=== PATIENT | female | born 1990 | race African-American/Black ===

== ENCOUNTER 2021-06-10 15:54 | Emergency (ER) | payer OTHER, SELFPAY ==
[2021-06-10 16:22] VITALS: PULSE 86; RESP 16; TEMP 36.7; O2SAT 100
--- NOTE | 2021-06-10 16:29 | ED.NAVMDI ---
HPI - Nausea/Vomiting/Diarrhea General Chief complaint: Nausea/Vomiting/Diarrhea Stated complaint: Nausea Time Seen by Provider: 06/10/21 16:40 Source: patient and RN notes reviewed Mode of arrival: ambulatory Limitations: no limitations History of Present Illness HPI Narrative: 31-year-old female presents with concern for 2-week history of nasal congestion, rhinorrhea, postnasal drainage, sinus pressure, nausea, dizziness, occasional vomiting. Reports approximately 1-2 episodes of vomiting daily. Reports dizziness when she changes positions or turns her head. She denies diarrhea or abdominal pain. Denies [id number] medications for her symptoms. She denies cough or shortness of breath. Reports she has been vaccinated for Covid. Reports her last menstrual period was 23 days ago, denies chance of . MD elicited complaint: nausea and vomiting Related Data Allergies Allergy/AdvReac Type Severity Reaction Status Date / Time shrimp Allergy Rash Verified 06/10/21 16:21 Review of Systems Review of Systems: CONSTITUTIONAL: Reports malaise. Denies chills, sweats, or fever. EYES: Denies visual changes, redness, or discharge. ENT: Reports rhinorrhea, congestion, sinus pain, otalgia. Denies sore throat. CARDIOVASCULAR: Denies chest pain, palpitations, or edema. RESPIRATORY: Denies cough or dyspnea. GASTROINTESTINAL: Denies abdominal pain, diarrhea, bloody, or mucous stools. Reports nausea, vomiting GENITOURINARY: Denies dysuria or hematuria. SKIN: Denies rash or itching. MUSCULOSKELETAL: Denies back pain, joint pain, or myalgia. NEUROLOGIC: Denies numbness, weakness, or headache. PSYCHIATRIC: Denies anxiety or depression. All systems reviewed & are unremarkable except as noted in HPI and below PMFSH Comments At time of signature, agree with nursing past medical, surgical, social and family history. There is no relevant family history pertinent to the presenting complaint Exam Narrative: GENERAL: Well-appearing, well-nourished, and in no acute distress. HEAD: Normocephalic EYES: PERRLA, conjunctivae clear ENT: Nares clear, turbinates edematous and erythematous, sinus tenderness. Mucous membranes moist. TM pearly saenz with dull light reflex bilaterally; no tragal tenderness. Oropharynx not erythematous without lesions. Tonsils not enlarged and without exudate, no drooling, no hoarseness, no trismus, uvula midline. NECK: Supple. No lymphadenopathy CHEST: Clear to auscultation, breath sounds equal. No wheezing, rhonchi, rales, or stridor. No respiratory distress, speaks in full sentences. HEART: Regular rate and rhythm. No murmur heard. ABDOMEN: Soft, flat, nondistended. No guarding, rebound tenderness, or rigidity. No pulsatilla masses. Bowel sounds present in all four quadrants. No organomegaly. Negative Ontiveros?s sign. No periumbilical tenderness. No Supra public tenderness or distension. SKIN: Warm, dry, no rash. NEURO: Alert and oriented x3. No focal deficits. Cranial nerves II through XII grossly intact. Priscila-Hallpike test negative PSYCH: Normal mood and affect Course Course Emergency Course: Patient is aware of diagnosis, understands and agrees to treatment plan. Anticipatory guidance given. Patient agrees to follow-up as directed and is aware of reasons to seek care at the emergency department. Portions of this record may have been created with voice recognition software Vital Signs Vital signs: Vital Signs Temperature 98.1 F 06/10/21 16:22 Pulse Rate 86 06/10/21 16:22 Respiratory Rate 16 06/10/21 16:22 Pulse Oximetry 100 06/10/21 16:22 Temperature 98.1 F 06/10/21 16:22 Pulse Rate 86 06/10/21 16:22 Respiratory Rate 16 06/10/21 16:22 Pulse Oximetry 100 06/10/21 16:22 Reviewed. MDM - Nausea/Vomiting/Diarrhea MDM Narrative Medical decision making narrative: No evidence of pancreatitis, AAA, cholecystitis, choledocholithiasis, cholangitis, mesenteric ischemia, small bowel obstru
[2021-06-10 16:31] VITALS: BP 105/59; PULSE 72
[2021-06-10 16:32] VITALS: BP 101/57; PULSE 77
[2021-06-10 16:34] VITALS: BP 108/66; PULSE 89
== END 2021-06-10 17:15 | disposition home or self-care (01) ==
PROVIDERS: Emergency Provider Nurse Practitioner
DX: J01.90 Acute sinusitis, unspecified (principal); R42 Dizziness and giddiness; Z20.822 Contact with and (suspected) exposure to COVID-19
CPT/HCPCS: 87426; 99213; C9803; G0463

== ENCOUNTER 2021-06-11 13:31 | Emergency (ER) | payer OTHER, SELFPAY ==
[2021-06-11 13:36] VITALS: BP 109/60; PULSE 77; RESP 17; TEMP 36.6; O2SAT 100
[2021-06-11 13:49] LABS: Basophils Percent Auto 0.3 % (0.2-1.2); Eosinophils Percent Auto 0.2 % (0-4.4); Hematocrit 37.8 % (37.0-47.0); Hemoglobin 12.6 g/dL (12.0-15.0); Immature Granulocyte Absolute 0.04 K/mm3 (0.00-0.031); Immature Granulocyte Percent A 0.4 % (0-0.5); Lymphocytes Absolute Auto 2.12 K/mm3 (0.9-3.2); Lymphocytes Percent Auto 21.8 % (18.3-44.2); Mean Corpuscular HGB Conc 33.3 g/dl (32-36); Mean Corpuscular Hemoglobin 29.2 pg (26-34); Mean Corpuscular Volume 87.5 fl (80-100); Mean Platelet Volume 11.6 fl (7.4-10.4); Monocytes Absolute Auto 0.4 K/mm3 (0.1-0.6); Monocytes Percent Auto 3.6 % (2.6-8.5); Neutrophils Absolute Auto 7.2 K/mm3 (1.3-6.7); Neutrophils Percent Auto 73.7 % (45.5-73.1); Platelet Count Result 183 k/mm3 (150-375); Red Blood Count 4.32 M/mm3 (4.2-5.4); Red Cell Distribution Width 11.9 % (11.5-14.5); White Blood Count 9.7 K/mm3 (4.5-10.0)
[2021-06-11 13:59] LABS: Alanine Aminotransferase 22 U/L (4-35); Albumin Level 4.2 g/dL (3.5-5.1); Alkaline Phosphatase 70 U/L (38-126); Anion Gap 10 mmol/L (8-16); Aspartate Amino Transferase 23 U/L (14-36); Bilirubin,Total 0.3 mg/dL (0.2-1.3); Blood Urea Nitrogen 6 mg/dL (7-17); Calcium 8.9 mg/dL (8.4-10.2); Carbon Dioxide 25 mmol/L (22-30); Chloride 105 mmol/L (98-107); Estimated CRCL calculation 115 ml/min; Estimated Glomerular Filt Rate > 60; Glucose 100 mg/dL (65-110); Lipase 107 U/L (23-300); Potassium 3.9 mmol/L (3.4-5.0); Sodium 140 mmol/L (137-145)
[2021-06-11 14:33] LABS: Add Urine Microscopic? YES; Appearance Urine Clear (Clear); Bilirubin Urine Negative (Negative); Blood Urine Negative (Negative); Color Urine Yellow (Yellow); Glucose Urine UA Negative (Negative); Ketones Urine Trace mg/dL (Negative); Leukocyte Esterase Ur Negative LEU/UL (Negative); Mucus Urine Rare /lpf; Nitrate Urine Negative (Negative); Protein Urine Negative (Negative); Specific Grav Ur 1.013 (1.001-1.035); Squamous Epithelial Cell Urine Rare /hpf (Few); Urobilinogen Urine Negative mg/dL (<2.0); WBC Urine 0-3 /hpf
[2021-06-11 16:28] VITALS: BP 104/70; PULSE 88; RESP 18; TEMP 36.7; O2SAT 100
--- NOTE | 2021-06-11 18:23 | ED.NAVMDI ---
HPI - Nausea/Vomiting/Diarrhea General Chief complaint: Nausea/Vomiting/Diarrhea Stated complaint: N/V Time Seen by Provider: 06/11/21 17:57 Source: patient Mode of arrival: ambulatory Limitations: no limitations History of Present Illness MD elicited complaint: nausea and vomiting Pertinent past history: anorexia Onset (ago): week(s) (3) Description of vomiting: food contents Description of diarrhea: other (none) Associated nausea: Yes Associated abdominal pain: No Exacerbating factors: eating and medication (started doxycycline) Relieving factors: none Associated symptoms: other (recently diagnosed with sinusitis, given zofran, doxycycline and medrol dose pack; not helping vomiting per patient) Related Data Allergies Allergy/AdvReac Type Severity Reaction Status Date / Time shrimp Allergy Rash Verified 06/11/21 18:01 Review of Systems Review of Systems: CONSTITUTIONAL: no fever, no weight loss, no confusion EYES: no vision changes, no eye pain ENT: no rhinorrhea, no sore throat, states sinus pain CARDIOVASCULAR: no chest pain, no leg edema, no palpitations RESPIRATORY: no cough, no shortness of breath, no hemoptysis GASTROINTESTINAL: no abdominal pain, positive nausea, positive vomiting, no diarrhea GENITOURINARY: no flank pain, no dysuria, no hematuria SKIN: no rash, no jaundice MUSCULOSKELETAL: no back pain, no trauma. NEUROLOGIC: positive for frontal headache, no dizziness, no focal weakness PSYCHIATRIC: No hallucinations, no suicidal ideation Exam Narrative: General: alert, afebrile, answering all questions appropriately Head: normocephalic, atraumatic Eyes: EOMI bilaterally, anicteric, no injection ENT: moist mucous membranes, oropharynx patent, no rhinorrhea Neck: supple, trachea midline, no JVD Abd: soft, non-distended, non-tender, no rebound, no gaurding, negative Ontiveros's EXT: no deformity noted, moving all extremities equally Skin: warm, dry, no pallor Neuro: alert, oriented x 3; CN 2-12 grossly intact, no dysarthria Psych: affect appropriate, though content normal Course Course Emergency Course: Patient is afebrile, abdomen soft, nondistended no vomiting in the ED, tolerating p.o. Plan is to change antibiotic to Keflex since it will be easier on her stomach. Patient told not to take doxycycline also sent home with Lg for breakthrough vomiting. Patient to follow-up with primary doctor she was given the name yesterday and to return for any concern including fever, intractable vomiting, inability to tolerate fluids or medications, worsening pain or any concern. CBC is normal, no anemia, no sign of infection. Vital Signs Vital signs: Vital Signs Temperature 36.6 C 06/11/21 13:36 Pulse Rate 77 06/11/21 13:36 Respiratory Rate 17 06/11/21 13:36 Blood Pressure 109/60 06/11/21 13:36 Pulse Oximetry 100 06/11/21 13:36 Temperature 36.7 C 06/11/21 16:28 Pulse Rate 88 06/11/21 16:28 Respiratory Rate 18 06/11/21 16:28 Blood Pressure 104/70 06/11/21 16:28 Pulse Oximetry 100 06/11/21 16:28 MDM - Nausea/Vomiting/Diarrhea MDM Narrative Medical decision making narrative: Patient recently seen for sinusitis and given doxycycline complaining increased nausea and vomiting since that time. She still has a headache. Labs were drawn out found patient pulse of 77, blood pressure 109/60, hemoglobin is 12.6 no evidence of anemia. No elevated white count at 9.7 patient is hydrated with a BUN of 6 creatinine of 1.5 urine without ketones and a specific gravity of 1.01. Patient is tolerating p.o. Last time she vomited was 4 hours prior to arrival. But she has candy wrappers at her side and was able to tolerate Twix bars. Lab Data Result diagrams: 06/11/21 13:42 06/11/21 13:42 Labs: Lab Results 06/11/21 06/11/21 06/11/21 Range/Units 13:42 13:42 13:55 WBC 9.7 (4.5-10.0) K/mm3 RBC 4.32 (4.2-5.4) M/mm3 Hgb 12.6 (12.0-15.0) g/dL Hct 37.8
[2021-06-11 18:50] VITALS: BP 112/60; PULSE 85; RESP 16; O2SAT 100
== END 2021-06-11 18:51 | disposition home or self-care (01) ==
PROVIDERS: Emergency Medicine; Emergency Provider Emergency Medicine
DX: R11.10 Vomiting, unspecified (principal); Z91.013 Allergy to seafood
CPT/HCPCS: 36415; 80053; 81001; 81025; 83690; 85025; 99283

== ENCOUNTER 2022-10-31 20:40 | Emergency (ER) | payer OTHER, SELFPAY ==
--- NOTE | ~2022-10-31 | US_ITS ---
Pelvic ultrasound. Clinical History: First trimester , evaluate for ectopic Technique: Realtime transabdominal and transvaginal scanning of the pelvis was performed. Color flow Doppler and Doppler spectral analysis were performed. Findings: The uterus is retroverted, and contains an intrauterine gestation. Angwin-rump length of 1.9 cm corresponds to an estimated gestational age of 8 weeks 3 days. No cardiac activity identified. The right ovary measures 2.7 x 1.7 x 1.7 cm. No significant right ovarian or adnexal mass is seen. The left ovary measures 3.2 x 1.5 x 1.4 cm. No significant left ovarian or adnexal mass is seen. There is no evidence of free fluid in the cul de sac. Impression: Intrauterine gestation with estimated gestational age of 8 weeks 3 days, but no cardiac activity. Thi s is consistent with demise/missed . Reviewed, dictated and finalized at [facility]. [employer] Impression: Intrauterine gestation with estimated gestational age of 8 weeks 3 days, but no cardiac activity. This is consistent with demise/missed .
[2022-10-31 21:02] VITALS: BP 100/39; PULSE 80; RESP 17; TEMP 35.8; O2SAT 100
[2022-10-31 22:25] LABS: Basophils Percent Auto 0.4 % (0.2-1.2); Eosinophils Absolute Auto 0.1 K/mm3 (0-0.3); Eosinophils Percent Auto 1.1 % (0-4.4); Hematocrit 37.3 % (37.0-47.0); Hemoglobin 12.1 g/dL (12.0-15.0); Immature Granulocyte Absolute 0.02 K/mm3 (0.00-0.031); Immature Granulocyte Percent A 0.2 % (0-0.5); Lymphocytes Percent Auto 29.5 % (18.3-44.2); Mean Corpuscular HGB Conc 32.4 g/dl (32-36); Mean Corpuscular Hemoglobin 29.4 pg (26-34); Mean Corpuscular Volume 90.5 fl (80-100); Monocytes Absolute Auto 0.6 K/mm3 (0.1-0.6); Monocytes Percent Auto 5.9 % (2.6-8.5); Neutrophils Absolute Auto 6.6 K/mm3 (1.3-6.7); Neutrophils Percent Auto 62.9 % (45.5-73.1); Platelet Count Result 208 k/mm3 (150-375); Red Blood Count 4.12 M/mm3 (4.2-5.4); Red Cell Distribution Width 13.4 % (11.5-14.5); White Blood Count 10.5 K/mm3 (4.5-10.0)
--- NOTE | 2022-11-01 02:48 | ED.GENADULT ---
HPI - General Adult General Chief complaint: Vaginal Bleeding Stated complaint: 11 weeks preg, vaginal bleeding Time Seen by Provider: 11/01/22 02:37 History of Present Illness HPI narrative: Patient is a 32-year-old female who presents the emergency department with chief complaint of vaginal bleeding. Patient reports started having spotting yesterday is noticed today she had some small clots. The patient reports she has not used more than 1 pad at this time. Patient reports no syncope denies lightheadedness patient reports this is her second and the previous level was not carried to term.. Related Data Allergies Allergy/AdvReac Type Severity Reaction Status Date / Time shellfish derived Allergy Intermediate Rash Verified 10/09/22 15:03 shrimp Allergy Rash Verified 10/09/22 15:03 Review of Systems Review of Systems: A 10 system review of systems was completed on the patient and is negative except for what is stated in the HPI. Nursing and ancillary documentation was reviewed. PMFSH Past Medical History Medical History Bunion of great toe of left foot surgically removed Suppression of menses Family History Family History Grandparent Cancer Social History Social History Smoking status: Never smoker Alcohol intake: never Substance use: never Living arrangements: with family Occupation/Education: occupation Additional occupation/education comments: [employer] Gender identity (if verbalized by the patient): Female Sexual Orientation (if Verbalized by the Patient): Straight or Heterosexual Exam Narrative: GENERAL: Well-appearing, well-nourished, and in no acute distress. HEAD: Normocephalic, atraumatic. EYES: PERRLA and EOMI. ENT: Nares clear, no rhinorrhea or epistaxis. Mucous membranes moist. NECK: Supple. CHEST: Clear to auscultation. No respiratory distress. HEART: Regular rate and rhythm. No murmur heard. Normal peripheral pulses. ABDOMEN: Soft, nontender, nondistended, normal active bowel sounds. EXTREMITIES: Normal range of motion. No edema. SKIN: Warm, dry, no rash. NEURO: No focal deficits. Alert and oriented x3. PSYCH: Normal mood and affect. Course Course Emergency Course: Differential diagnosis includes ectopic , threatened AB, missed AB. Laboratory studies were obtained which showed [place] 4052 blood type is a positive Ultrasound showed a intrauterine with signs of demise. 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 Vital Signs Vital signs: Vital Signs Temperature 35.8 C L 10/31/22 21:02 Pulse Rate 80 10/31/22 21:02 Respiratory Rate 17 10/31/22 21:02 Blood Pressure 100/39 L 10/31/22 21:02 Pulse Oximetry 100 10/31/22 21:02 Oxygen Delivery Room Air 10/31/22 21:02 Temperature 35.8 C L 10/31/22 21:02 Pulse Rate 80 10/31/22 21:02 Respiratory Rate 17 10/31/22 21:02 Blood Pressure 100/39 L 10/31/22 21:02 Pulse Oximetry 100 10/31/22 21:02 Oxygen Delivery Room Air 10/31/22 21:02 Medical Decision Making Vital Signs Vital Signs: Vital Signs Temperature 35.8 C L 10/31/22 21:02 Pulse Rate 80 10/31/22 21:02 Respiratory Rate 17 10/31/22 21:02 Blood Pressure 100/39 L 10/31/22 21:02 Pulse Oximetry 100 10/31/22 21:02 Oxygen Delivery Room Air 10/31/22 21:02 Temperature 35.8 C L 10/31/22 21:02 Pulse Rate 80 10/31/22 21:02 Respiratory Rate 17 10/31/22 21:02 Blood Pressure 100/39 L 10/31/22 21:02 Pulse Oximetry 100 10/31/22 21:02 Oxygen Delivery Room Air 10/31/22 21:02 Lab Data 10/31/22 22:17 Labs: Lab Results 10/31/22 10/31/22 10/31/22 Range/Units 22:17 22
[2022-11-01 02:57] VITALS: BP 118/69; PULSE 70; RESP 18; TEMP 36.6; O2SAT 99
== END 2022-11-01 02:59 | disposition home or self-care (01) ==
PROVIDERS: Emergency Provider Emergency Medicine; PCP Student in an Organized Health Care Education/Training Program
DX: O02.1 Missed abortion (principal); Z3A.11 11 weeks gestation of pregnancy
CPT/HCPCS: 36415; 76801; 84702; 85025; 85461; 86850; 86900; 86901; 99284